=== PATIENT | female | born 1960 | race Caucasian/White ===

== ENCOUNTER 2019-08-02 06:35 | Day surgery (SDC) | payer BC ==
[2019-08-02] MEDS ORDERED: fentaNYL 100 MCG/2 ML SDV ONE (07:12)
[2019-08-02] MEDS ORDERED: Midazolam 1 MG/ML 2 ML SDV ONE (07:12)
[2019-08-02] MEDS ORDERED: Propofol 200 MG/20 ML SDV ONE (07:12)
[2019-08-02] MEDS ORDERED: Dextrose 5%-Lactated Ringers 1,000 ML IV SCH (07:30)
[2019-08-02] MEDS ORDERED: ceFAZolin 2 GM in Premix Bag 1 BAG IV ONE (07:30)
[2019-08-02] MEDS ORDERED: Rocuronium 50 MG/5 ML Vial ONE (07:44)
[2019-08-02] MEDS ORDERED: Ondansetron 4 MG/2 ML SDV ONE (07:46)
[2019-08-02] MEDS ORDERED: Succinylcholine 200 MG/10 ML MDV ONE (07:46)
[2019-08-02] MEDS ORDERED: Neostigmine Methylsulfate 1 MG/ML 5 ML Syringe ONE (07:46)
[2019-08-02] MEDS ORDERED: Glycopyrrolate 0.2 MG/ML 5 ML MDV ONE (07:46)
[2019-08-02] MEDS ORDERED: Dexamethasone 4 MG/ML SDV ONE (07:46)
[2019-08-02] MEDS ORDERED: fentaNYL 250 MCG/5 ML SDV ONE (07:55)
[2019-08-02] MEDS: Bupivacaine 0.5% 50 ML MDV ONE ×2 (08:28→08:38)
[2019-08-02] MEDS: Lidocaine 1% with EPINEPHrine 1:100,000 50 ML MDV ONE ×2 (08:28→08:38)
[2019-08-02] MEDS ORDERED: Ketorolac 60 MG/2 ML SDV IM ONE (08:54)
[2019-08-02] MEDS ORDERED: Acetaminophen/HYDROcodone 325-5 MG Tab PO ONE (09:48)
--- NOTE | 2019-08-05 08:57 | OR ---
DATE OF PROCEDURE: 08/02/2019 SURGEON: Charles Campbell MD PREOPERATIVE DIAGNOSIS: Superficial invasive melanoma, left calf. POSTOPERATIVE DIAGNOSIS: Superficial invasive melanoma, left calf. OPERATIVE PROCEDURE: Wide excision of malignant melanoma, left calf, with a layered closure. INDICATION FOR PROCEDURE: A 58-year-old presenting recently with a pigmented lesion on the posterior aspect of the left calf. Excisional biopsy of this showed this to be 0.3 mm deep invasive melanoma, superficial, spreading subtype. The plan at this point will be to proceed with excision, maintaining a 1 cm margin. The depth of this with lack of ulceration as such would indicate no need for a sentinel lymph node biopsy. Potential risks of the procedure were reviewed including bleeding, infection, that this will heal in quite tight and, over a period of time, limit the ankle motion, were gone over, and the patient wishes to proceed. DETAILS OF PROCEDURE: The patient was taken to the operating room and placed in a supine position. After general endotracheal anesthesia was induced, she was placed in a prone position, and the left calf and surrounding areas were prepped and draped. The incision was then mapped out, and subsequently a transversely oriented elliptical incision would be created, maintaining a 1 cm margin from all points of the previous incision. This was then carried down through the skin and subcutaneous tissue and down to the level of the underlying fascia. The underlying fascia was excised as well, and the specimen delivered from the field. The inferior and medial margins were labeled for pathology examination. The lesion plus margin length was 5.2 cm. Incision was quite tight and was closed with layers of 2-0 and 3-0 Vicryl stitches deep and rasheeda for the skin. Incision length was 10.1 cm. The patient was taken to the recovery room in satisfactory condition. Charles Campbell MD /[id number]
== END 2019-08-02 11:17 | disposition home or self-care (01) ==
LOC: JP.SDS 06:35
PROVIDERS: ATTEND Surgery
DX: C43.72 Malignant melanoma of left lower limb, including hip (principal)
CPT/HCPCS: 11606; 12034; 36415; 80053; 85027; A9270; J0330; J0690; J1100; J1885; J2020; J2250; J2405; J2704; J2710; J3010; J3490; J7121